=== PATIENT | male | born 1950 | race Caucasian/White ===

== ENCOUNTER 2018-02-04 14:51 | Emergency (ER) | payer OTHER ==
[2018-02-04 15:03] VITALS: BP 157/86
--- NOTE | 2018-02-04 15:59 | ER Document Report ---
ED Foreign Body - General Chief Complaint: Foreign Body in Ear Stated Complaint: LEFT EAR PAIN Time Seen by Provider: 02/04/18 15:42 Mode of Arrival: Ambulatory Information source: Patient Notes: 67-year-old male presents to ED for complaint of piece of his hearing aid stuck in his left ear. States he was sent to [facility] for [facility] evaluation and treatment and they were not able to urinate. He states he has continued to have pain and discomfort in this area for the last couple days. States she is to the ER now to have the [employer]PERVISOR if hearing aids removed. TRAVEL OUTSIDE OF THE [place] IN LAST 30 DAYS: No - HPI Location of foreign body: Other - Left ear canal Onset: Other - Last week Onset/Duration: Persistent Quality of pain: Achy Severity: Mild Pain Level: 1 Context: Other - Patient here in a disconnected from hearing aid and retained in his ear Associated symptoms: Other Exacerbated by: Denies Relieved by: Denies Similar symptoms previously: Yes Recently seen / treated by doctor: Yes - Related Data Allergies/Adverse Reactions: codeine Allergy (Verified 02/04/18 14:55) Penicillins Allergy (Verified 02/04/18 14:55) Past Medical History - General Information source: Patient - Social History Smoking Status: Current Some Day Smoker - Occasional cigar Cigarette use (# per day): Yes - Occasional cigar Chew tobacco use (# tins/day): No - 4 minutes Smoking Education Provided: Yes Frequency of alcohol use: Social Drug Abuse: None Occupation: Retired Lives with: Alone Family History: Reviewed & Not Pertinent Patient has suicidal ideation: No Patient has homicidal ideation: No - Past Medical History Cardiac Medical History: Reports: Hx Hypertension Pulmonary Medical History: Reports: None Neurological Medical History: Reports: None Endocrine Medical History: Reports: Hx Diabetes Mellitus Type 2 Renal/ Medical History: Reports: None Malignancy Medical History: Reports None GI Medical History: Reports: None Musculoskeltal Medical History: Reports Hx Musculoskeletal Deformity Skin Medical History: Reports None Psychiatric Medical History: Reports: None Traumatic Medical History: Reports: None Infectious Medical History: Reports: None Past Surgical History: Reports: Hx Appendectomy, Hx Inguinal Hernia - Immunizations Immunizations up to date: Yes Review of Systems - Review of Systems Constitutional: No symptoms reported EENT: Other - States that part of his hearing aid from the urinate and retained in his left ear canal. States that he went to the [facility] and they were not able to see the piece of the hearing aid. He states that he continued to have discomfort so he came to the emergency room Cardiovascular: No symptoms reported Respiratory: No symptoms reported Gastrointestinal: No symptoms reported Genitourinary: No symptoms reported Male Genitourinary: No symptoms reported Musculoskeletal: No symptoms reported Skin: No symptoms reported Hematologic/Lymphatic: No symptoms reported Neurological/Psychological: No symptoms reported -: Yes All other systems reviewed and negative Physical Exam - Vital signs Vitals: Temp Pulse Resp BP Pulse Ox 97.7 F 81 16 157/86 H 97 02/04/18 15:01 02/04/18 15:01 02/04/18 15:01 02/04/18 15:01 02/04/18 15:01 Interpretation: Normal - General General appearance: Appears well, Alert - HEENT Head: Normocephalic, Atraumatic Eyes: Normal Pupils: PERRL Ears: Normal External canal: Foreign body - Of his hearing aid was in the left ear canal Tympanic membrane: Normal Sinus: Normal Nasal: Normal Mouth/Lips: Normal Mucous membranes: Normal Pharynx: Normal Neck: Normal - Respiratory Respiratory status: No respiratory distress Chest status: Nontender Breath sounds: Normal Chest palpation: Normal - Cardiovascular Rhythm: Regular Heart sounds: Normal auscultation Murmur: No - Abdominal Inspection: Normal Distension: No distension Bowel sounds: Normal Tenderness: Nontender Organomegaly: No organomegaly - Back Back: Normal, Nontender - Extremities General upper extremity: Normal inspection, Nontender, Normal color, Normal ROM , Normal temperature General lower extremity: Normal inspection, Nontender, Normal color, Normal ROM , Normal temperature, Normal weight bearing. No: Shavonne's sign - Neurological Neuro grossly intact: Yes Cognition: Normal Orientation: AAOx4 [place] Coma Scale Eye Opening: Spontaneous [place] Coma Scale Verbal: Oriented [place] Coma Scale Motor: Obeys Commands [place] Coma Scale Total: 15 Speech: Normal Motor strength normal: LUE, RUE, LLE, RLE Sensory: Normal - Psychological Associated symptoms: Normal affect, Normal mood - Skin Skin Temperature: Warm Skin Moisture: Dry Skin Color: Normal Course - Re-evaluation Re-evalutation: 02/04/18 23:10 Part of hearing he removed from the left ear canal with no pain or discomfort. No injury to the ear. Patient was discharged home to follow-up with his primary doctor. Patient tolerated procedure well - Vital Signs Vital signs: Temp Pulse Resp BP Pulse Ox 97.7 F 81 16 157/86 H 97 02/04/18 15:01 02/04/18 15:01 02/04/18 15:01 02/04/18 15:01 02/04/18 15:01 Procedures - Additional Procedures Foreign body removed from left ear canal Time performed: 15:58 Discharge - Discharge Clinical Impression: Non-penetrating foreign body in left ear canal Qualifiers: Encounter type: initial encounter Qualified Code(s): S00.452A - Superficial foreign body of left ear, initial encounter Condition: Stable Disposition: HOME, SELF-CARE Instructions: Family Physicians / Practices Additional Instructions: Foreign Object in the Ear Examination showed a foreign object in the ear. This can cause pain, swelling, infection, and decreased hearing. An ear foreign body should be removed promptly. Usually no further treatment is necessary following removal. If infection is already present, we prescribe antibiotic drops. Sometimes the object damages the eardrum. If hearing is not normal, or if an obvious injury was seen, another checkup is necessary. If there is continued drainage, continued earache, fever, headache, or hearing loss, come back for reexamination. Part of hearing aid removed from left ear canal FOLLOW-UP CARE: If you have been referred to a physician for follow-up care, call the physician s office for an appointment as you were instructed or within the next two days. If you experience worsening or a significant change in your symptoms, notify the physician immediately or return to the Emergency Department at any time for re-evaluation. Forms: Elevated Blood Pressure, Smoking Cessation Education
== END 2018-02-04 16:01 | disposition home or self-care (01) ==
LOC: ER 14:51
DX: T16.2XXA Foreign body in left ear, initial encounter (principal); X58.XXXA Exposure to other specified factors, initial encounter; Z88.5 Allergy status to narcotic agent; Z88.0 Allergy status to penicillin; I10 Essential (primary) hypertension; E11.9 Type 2 diabetes mellitus without complications; F17.290 Nicotine dependence, other tobacco product, uncomplicated; Z90.49 Acquired absence of other specified parts of digestive tract
CPT/HCPCS: 99282